=== PATIENT | female | born 1935 | race Caucasian/White ===

== ENCOUNTER → 2019-06-27 | Outpatient (CLI) | payer MEDICARE, OTHER ==
--- NOTE | 2019-06-27 12:49 | RADIOLOGY REPORT (SQ) ---
EXAM DESCRIPTION: KUB/ABDOMEN (SINGLE VIEW) COMPLETED DATE/TIME: 06/27/2019 11:49 am REASON FOR STUDY: FECAL SMEARING (R15.1) R15.1 FECAL SMEARING COMPARISON: None. NUMBER OF VIEWS: One view. TECHNIQUE: Supine radiographic image of the abdomen acquired. LIMITATIONS: None. FINDINGS: BOWEL GAS PATTERN: Large amount of stool in the colon. Stomach, small bowel decompressed. CALCIFICATIONS: No suspicious calcifications. SOFT TISSUES: No gross mass or suggestion of organomegaly. HARDWARE: None in the abdomen. BONES: Convex leftward lumbar curvature, old healed right posterior rib fractures OTHER: No other significant finding. IMPRESSION: Large amount of stool throughout the colon. Otherwise nonobstructive bowel gas pattern TECHNICAL DOCUMENTATION: JOB ID: [id number] [employer] All Rights Reserved Reading location - IP/workstation name: [email or web address]
== END ==
LOC: RAD 11:28
PROVIDERS: ATTEND Internal Medicine Gastroenterology
DX: R15.1 Fecal smearing (principal)
CPT/HCPCS: 74018

== ENCOUNTER → 2019-07-17 | Outpatient (CLI) | payer MEDICARE, OTHER ==
--- NOTE | 2019-07-18 08:03 | XCELERA REPORT ---
[address] [address] Upper Extremity Arterial Evaluation Name: SANTY GOETZ Age: 84 yrs Gender: Female : 1935 Patient Status: Outpatient Patient Location: Study Date: 07/17/2019 03:06 PM Procedure: A duplex scan of the upper extremity arteries was performed bilaterally. Reason For Study: PAD, HTN RUE Ordering Physician: ELVIS WALSH Performed By: Merrick Aguilar Measurements and Calculations Right Left Prox SCLA PSV 125.7 150.1 cm/sec Mid SCLA PSV 81.1 110.3 cm/sec Ax A PSV -64.2 -34.0 cm/sec Prox Brach A PSV 87.7 -84.5 cm/sec Dist Brach A PSV 97.6 -90.8 cm/sec Prox Rad A PSV -95.4 -57.8 cm/sec Dist Rad A PSV 99.3 -70.3 cm/sec Prox Ulnar A PSV -68.5 -45.8 cm/sec Dist Ulnar A PSV -118.7 72.3 cm/sec Ax A PSV -64.2 -34.0 cm/sec Dist Brach A PSV 97.6 -90.8 cm/sec Dist Rad A PSV 99.3 -70.3 cm/sec Dist Ulnar A PSV -118.7 72.3 cm/sec Mid SCLA PSV 81.1 110.3 cm/sec Prox Brach A PSV 87.7 -84.5 cm/sec Prox Rad A PSV -95.4 -57.8 cm/sec Prox Ulnar A PSV -68.5 -45.8 cm/sec Right Side Arterial Evaluation Normal velocity and triphasic waveforms noted from the Common Carotid artery to the forearm vessels . Left Side Arterial Evaluation Normal velocity and triphasic waveforms noted from the Common Carotid artery to the forearm vessels . Interpretation Summary No hemodynamically significant lesions in the bilateral upper extremities, on duplex imaging, at rest. : ELVIS WALSH, [place] >
== END ==
LOC: SP 14:39
DX: I10 Essential (primary) hypertension (principal); I73.9 Peripheral vascular disease, unspecified
CPT/HCPCS: 93930